=== PATIENT | male | born 1965 | race Caucasian/White ===

== ENCOUNTER 2023-03-24 17:52 | Emergency (ER) | payer MEDICAID ==
[~2023-03-24] VITALS: Ht 165.1 cm; Wt 77.0 kg
[2023-03-24 18:01] VITALS: BP 139/115
[2023-03-24] MEDS ORDERED: FLUORESCEIN SODIUM 1MG/STRIP BOTHEYE ONE (22:30)
[2023-03-24] MEDS ORDERED: ACET-2708 MT ×2 (22:56)
[2023-03-24] MEDS ORDERED: ERYT1OIN6 RIGHTEYE ×2 (22:56)
[2023-03-24] MEDS ORDERED: ACETAMINOPHEN 500MG TABLET PO ONE (23:00)
[2023-03-25] MEDS ORDERED: ERYT1OIN6 RIGHTEYE (00:33)
[2023-03-25] MEDS ORDERED: ACET-2708 MT (00:33)
== END 2023-03-24 23:08 | disposition home or self-care (01) ==
LOC: ER 17:52
DX: H10.9 Unspecified conjunctivitis (principal); H57.89 Other specified disorders of eye and adnexa
CPT/HCPCS: 99283; Z7610

== ENCOUNTER 2024-05-07 13:09 | Emergency (ER) | payer MEDICAID ==
[~2024-05-07] VITALS: Ht 165.1 cm; Wt 79.4 kg
[~2024-05-07 13:09] MED LIST: ACET-2708 MT; ERYT1OIN6 RIGHTEYE
[2024-05-07 13:24] VITALS: O2SAT 100
[2024-05-07 13:31] VITALS: TEMP 98.2
[2024-05-07 14:59] VITALS: BP 153/101; PULSE 73; RESP 18
[2024-05-07] MEDS: IBUPROFEN 400MG TABLET PO ONE (14:59)
[2024-05-07] MEDS ORDERED: IBUP-2028 MT (15:34)
[2024-05-07] MEDS ORDERED: TUSSL MT (15:34)
== END 2024-05-07 16:05 | disposition home or self-care (01) ==
LOC: ER 13:09
DX: B34.9 Viral infection, unspecified (principal); I10 Essential (primary) hypertension
CPT/HCPCS: 99282; Z7610

== ENCOUNTER 2025-05-11 12:21 | Emergency (ER) | payer MEDICAID ==
[~2025-05-11] VITALS: Ht 165.1 cm; Wt 79.4 kg
[~2025-05-11 12:21] MED LIST changes: +IBUP-2028 MT; +TUSSL MT
[2025-05-11 12:29] VITALS: TEMP 37.1
[2025-05-11] MEDS ORDERED: DEXAMETHASONE 10 MG/ML VIAL PO ONE (13:45)
[2025-05-11] MEDS: DEXAMETHASONE 4MG TABLET PO SCH (13:51)
[2025-05-11 14:02] VITALS: PULSE 67; RESP 18; O2SAT 100
[2025-05-11] MEDS: IPRATROPIUM/ALBUTEROL 0.5-3(2.5)MG/3ML NEB HHN ONE (14:02)
[2025-05-11] MEDS ORDERED: GUAI-450 MT (14:20)
[2025-05-11] MEDS ORDERED: BENZ1LOZ73 MT (14:20)
[2025-05-11] MEDS ORDERED: P50 MT (14:20)
[2025-05-11 14:34] VITALS: BP 144/62; PULSE 74; RESP 16; O2SAT 99
== END 2025-05-11 14:35 | disposition home or self-care (01) ==
LOC: ER 12:21
DX: J20.8 Acute bronchitis due to other specified organisms (principal); I10 Essential (primary) hypertension; Z79.52 Long term (current) use of systemic steroids; Z79.899 Other long term (current) drug therapy
CPT/HCPCS: 71045; 94640; 99283; J8540; Z7610 ×3; 94070